=== PATIENT | female | born 1955 | race Two or more races ===

== ENCOUNTER 2020-07-18 10:09 | Day surgery (SDC) | payer OTHER | END 2020-07-18 16:35 | disposition home or self-care (01) | LOC: AMB-ENDOS 10:09 | PROVIDERS: ATTEND Colon & Rectal Surgery | DX: K62.82 Dysplasia of anus (principal); K64.0 First degree hemorrhoids; Z20.822 Contact with and (suspected) exposure to COVID-19 ==

== ENCOUNTER 2021-03-06 06:56 | Day surgery (SDC) | payer OTHER | END 2021-03-06 12:05 | disposition home or self-care (01) | LOC: AMB-ENDOS 06:56 | PROVIDERS: ATTEND Colon & Rectal Surgery | DX: C18.7 Malignant neoplasm of sigmoid colon (principal); K64.1 Second degree hemorrhoids; Z20.822 Contact with and (suspected) exposure to COVID-19 ==

== ENCOUNTER 2021-03-30 08:45 | Inpatient (IN) | payer OTHER ==
[~2021-03-30] VITALS: Ht 165.1 cm; Wt 90.7 kg
[2021-03-30] MEDS ORDERED: COZAAR50 MG PO (11:26)
[2021-04-03] MEDS ORDERED: MIRALAX510 GM PO (15:52)
[2021-04-03] MEDS ORDERED: PERCOCET 5-3251 EACH PO (15:52)
== END 2021-04-03 16:30 | disposition home or self-care (01) | DRG 330 ==
LOC: O/R 04-01 06:05 → SURG 04-01 06:05 → SURH 04-01 08:45 → SURG 04-02 09:08
PROVIDERS: ADMIT Colon & Rectal Surgery; ATTEND Colon & Rectal Surgery
PROC: 0DBP4ZZ Excision of Rectum, Percutaneous Endoscopic Approach (ICD-10-PCS; 2021-04-01)
PROC: 07BB4ZZ Excision of Mesenteric Lymphatic, Percutaneous Endoscopic Approach (ICD-10-PCS; 2021-04-01)
PROC: 0DTN4ZZ Resection of Sigmoid Colon, Percutaneous Endoscopic Approach (ICD-10-PCS; principal; 2021-04-01 16:15)
DX: C19 Malignant neoplasm of rectosigmoid junction (principal); K92.1 Melena; K57.32 Diverticulitis of large intestine without perforation or abscess without bleeding; R59.0 Localized enlarged lymph nodes; Z20.822 Contact with and (suspected) exposure to COVID-19; Z85.038 Personal history of other malignant neoplasm of large intestine; Z86.010 Personal history of colon polyps

== ENCOUNTER 2021-08-22 14:19 | Inpatient (IN) | payer OTHER ==
[~2021-08-22] VITALS: Ht 165.1 cm; Wt 93.0 kg
[~2021-08-22 14:19] MED LIST: COZAAR50 MG PO; MIRALAX510 GM PO; PERCOCET 5-3251 EACH PO
[2021-08-27] MEDS ORDERED: CIPRO500 MG PO (13:32)
[2021-08-27] MEDS ORDERED: METRONIDAZOLE500 MG PO (13:32)
== END 2021-08-27 18:59 | disposition home or self-care (01) | DRG 392 ==
LOC: ER 14:19 → SURH 21:14
PROVIDERS: ADMIT Colon & Rectal Surgery; ATTEND Colon & Rectal Surgery
PROC: BW21YZZ Computerized Tomography (CT Scan) of Abdomen and Pelvis using Other Contrast (ICD-10-PCS; principal; 2021-08-26)
DX: K52.89 Other specified noninfective gastroenteritis and colitis (principal); K57.30 Diverticulosis of large intestine without perforation or abscess without bleeding; I10 Essential (primary) hypertension; Z85.038 Personal history of other malignant neoplasm of large intestine; E78.49 Other hyperlipidemia; E88.81 Metabolic syndrome and other insulin resistance